=== PATIENT | male | born 1985 | race Caucasian/White ===

== ENCOUNTER 2016-08-31 19:57 | Emergency (ER) | payer OTHER ==
[~2016-08-31] VITALS: Ht 180.3 cm; Wt 84.1 kg
[2016-08-31 19:59] VITALS: BP 134/77; PULSE 69; RESP 16; O2SAT 98
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
[2016-08-31 21:47] LABS: BASOPHILS % (AUTO) 0.4 % (0-3); EOSINOPHILS % (AUTO) 3.8 % (0-5); MONOCYTES % (AUTO) 9.9 % (4-12); Mean Corpuscular Hemoglobin 30.4 pg (27.0-35.0); Mean Corpuscular Volume 89.2 fL (81-100); NEUTROPHILS % (AUTO) 53.5 % (40-74); Platelet Count 312 bil/L (150-400)
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
[2016-08-31] MEDS ORDERED: _Ondansetron ODT 4 mg Tablet PO PRN (22:00)
[2016-08-31] MEDS ORDERED: _oxyCODONE/APAP 5-325 mg Tablet PO PRN (22:00)
[2016-08-31 22:46] VITALS: BP 115/63; PULSE 65; RESP 20; O2SAT 99
== END 2016-08-31 22:48 | disposition home or self-care (01) ==
LOC: SED 19:57
DX: S30.0XXA Contusion of lower back and pelvis, initial encounter (principal); V03.00XA Pedestrian on foot injured in collision with car, pick-up truck or van in nontraffic accident, initial encounter; Y92.410 Unspecified street and highway as the place of occurrence of the external cause; Y93.01 Activity, walking, marching and hiking; Y99.8 Other external cause status